=== PATIENT | female | born 1960 | race Two or more races ===

== ENCOUNTER 2017-10-19 07:50 | Day surgery (SDC) | payer OTHER ==
[~2017-10-19 07:50] MED LIST: BUPROPION HCL150 M1 PO; CLONAZEPAM2 MG PO; ESTAZOLAM1 MG PO; LAMICTAL (ORAN1 EACH PO; QUETIAPINE FUM400 MG PO; TRAMADOL HCL50 MG PO
[2017-10-19] MEDS ORDERED: DUI500 PO (15:24)
[2017-10-19] MEDS ORDERED: OXYC1TAB9 PO (15:24)
== END 2017-10-19 19:30 | disposition home or self-care (01) ==
LOC: CIR.AMB 07:50
DX: M75.121 Complete rotator cuff tear or rupture of right shoulder, not specified as traumatic (principal); S46.211A Strain of muscle, fascia and tendon of other parts of biceps, right arm, initial encounter; S43.491A Other sprain of right shoulder joint, initial encounter